=== PATIENT | male | born 1940 | race Caucasian/White ===

== ENCOUNTER 2019-09-15 06:46 | Day surgery (SDC) | payer MEDICARE, MEDICAID ==
[~2019-09-15] VITALS: Ht 185.4 cm; Wt 103.9 kg
[2019-09-15] VITALS (16 sets, daily range): BP systolic 93–152; BP diastolic 56–92
[2019-09-15] MEDS ORDERED: normal saline 1000ml 1,000 ML IV PRN (07:15)
[2019-09-15] MEDS ORDERED: LISI-600 PO (07:35)
[2019-09-15] MEDS ORDERED: MULT-453 (07:35)
[2019-09-15] MEDS ORDERED: ASCO500C17 PO (07:35)
[2019-09-15] MEDS ORDERED: ATOR40TA PO (07:35)
[2019-09-15] MEDS ORDERED: DOCU-148 PO (07:35)
[2019-09-15] MEDS ORDERED: FLUT1AER (07:35)
[2019-09-15] MEDS ORDERED: RIVA20TA PO (07:35)
[2019-09-15] MEDS ORDERED: SPIR25TA5 PO (07:35)
[2019-09-15] MEDS ORDERED: OMEP20CA15 PO (07:35)
[2019-09-15] MEDS ORDERED: LACTC PO (07:35)
[2019-09-15] MEDS ORDERED: ASPI-611 PO (07:35)
[2019-09-15] MEDS ORDERED: FURO40TA4 PO (07:35)
[2019-09-15] MEDS ORDERED: CARV-49 PO (07:35)
[2019-09-15] MEDS ORDERED: SENN-263 PO (07:35)
[2019-09-15 08:05] LABS: BASOPHILS # (AUTO) 0.1 X10'3 (0-0.2); BASOPHILS % (AUTO) 1.1 % (0-1); EOSINOPHILS # (AUTO) 1.1 X10'3 (0-0.9); EOSINOPHILS % (AUTO) 10.9 % (0-6); HEMATOCRIT 32.2 % (42.0-52.0); HEMOGLOBIN 10.9 g/dl (14.0-17.9); LYMPHOCYTES % (AUTO) 19.1 % (21-51); MEAN CORPUSCULAR HEMOGLOBIN 28.5 PG (27.0-31.0); MEAN CORPUSCULAR HGB CONC 33.9 g/dL (33.0-36.5); MEAN CORPUSCULAR VOLUME 84.1 FL (78-98); MEAN PLATELET VOLUME 8.6 FL (7.4-10.4); MONOCYTES # (AUTO) 1.5 X10'3 (0-0.9); MONOCYTES % (AUTO) 14.1 % (2-12); NEUTROPHILS # (AUTO) 5.7 X10'3 (1.8-7.7); NEUTROPHILS % (AUTO) 54.8 % (42-75); PLATELET COUNT 378 X10'3 (140-440); RED BLOOD COUNT 3.83 X10'6 (4.70-6.10); RED CELL DISTRIBUTION WIDTH 18.9 % (11.5-14.5); WHITE BLOOD COUNT 10.5 X10'3 (4.5-11.0)
[2019-09-15 08:12] LABS: ALBUMIN 2.3 G/DL (3.4-5.0); ANION GAP 6 (8-16); BLOOD UREA NITROGEN 15 MG/DL (7-18); CALCIUM 9.5 MG/DL (8.5-10.1); CHLORIDE 101 MMOL/L (99-107); CREATININE 0.88 MG/DL (0.60-1.10); GLUCOSE 105 MG/DL (70-104); POTASSIUM 4.3 MMOL/L (3.5-5.1); SODIUM 135 MMOL/L (135-145); TOTAL CARBON DIOXIDE 27.7 MMOL/L (24-32); eGFR 84 ML/MIN
[2019-09-15] MEDS ORDERED: fentaNYL/PF 50MCG/1 ML 2ML syringe ONE ×6 (08:22→12:43)
[2019-09-15] MEDS ORDERED: midazolam 2 mg/2 ml injection ONE ×3 (08:22→12:49)
[2019-09-15] MEDS ORDERED: LIDOcaine 1%/PF 5ML 10 MG/ML VIAL ONE ×2 (08:22→16:04)
[2019-09-15] MEDS ORDERED: heparin 1,000 UNITS/NS 500ml 500 ML ONE ×3 (08:23→11:58)
[2019-09-15] MEDS ORDERED: iohexol 300mg/ml 100ml inj. ONE ×3 (08:23→12:00)
[2019-09-15] MEDS ORDERED: heparin 1,000unit/ml 10ml vial 10 ML ONE ×3 (09:54→16:03)
[2019-09-15 10:03] LABS: ANISOCYTOSIS 2+; PLATELET ESTIMATE NORMAL
[2019-09-15] MEDS ORDERED: diphenhydrAMINE 50 mg/ml inj ONE (11:05)
[2019-09-15] MEDS ORDERED: normal saline 1000ml 1,000 ML IV SCH (13:29)
--- NOTE | 2019-09-15 16:30 | NUR ---
Bedside report to REX Manzano-VSS-Pt sleeping-Bilateral femoral sites CDI/soft to palpation-Rt sided tenderness w/palpation -no significant changes noted since riley to Pt room Addendum: 09/15/19 at 1632 by Sofy Vences RN Amended: Links added.
== END 2019-09-15 20:15 ==
LOC: U 06:46 → MED 3N 06:47 → U 20:15
PROVIDERS: ATTEND Radiology Vascular & Interventional Radiology
DX: I70.261 Atherosclerosis of native arteries of extremities with gangrene, right leg (principal); Z79.899 Other long term (current) drug therapy; Z79.82 Long term (current) use of aspirin
CPT/HCPCS: 36415; 37221; 37226; 37228; 80048; 85025; 85347; 85610; 99152; 99153; C1725; C1757; C1760; C1769; C1876; C1894; C2623; J1200; J1644; J2250; J3010; Q9967; 37223; A6213